=== PATIENT | male | born 1980 | race Caucasian/White ===

== ENCOUNTER 2017-11-13 08:20 | Day surgery (SDC) | payer OTHER ==
[2017-11-02 10:50] VITALS: Ht 185.4 cm; Wt 177.3 kg
[~2017-11-13] VITALS: Ht 185.4 cm; Wt 177.3 kg
[~2017-11-13 08:20] MED LIST: AMOX875T PO; CEFAZOLIN 3000MG IV PUSH 22.5 ML IV SCH; FURO-85 PO; GLIM2TAB2 PO; LACTATED RINGER'S 1000ML 1,000 ML IV SCH; LEVO200T6 PO; LEVO25TA5 PO; LISI20TA3 PO; METF-384 PO; SULF800T23 PO
[2017-11-13] MEDS ORDERED: FENTANYL CITRATE INJ 50 MCG/1 ML 2 ML VIAL ONE ×2 (08:46→10:08)
[2017-11-13] MEDS ORDERED: MIDAZOLAM HCL 1 MG/ML 2ML VIAL ONE ×2 (08:47)
[2017-11-13 08:48] VITALS: BP 156/79; PULSE 94; TEMP 37.2; O2SAT 95
--- NOTE | 2017-11-13 09:16 | History & Physical Bridge Note ---
H&P Re-Evaluation Bridge Note: I have examined the patient, reviewed the History & Physical and in the interval since the performance of the History & Physical I have noted the following changes of clinical significance: No changes noted
[2017-11-13] MEDS ORDERED: BUPIVACAINE 0.5 % 5 MG/1 ML MPF 30ML VIAL ONE ×2 (09:21→10:07)
[2017-11-13] MEDS ORDERED: LIDOCAINE HCL 1% 20 ML VIAL ONE ×2 (09:21→10:07)
[2017-11-13] MEDS ORDERED: ONDANSETRON INJ 2 MG/ML 2 ML VIAL IV PRN ×2 (09:30→10:45)
[2017-11-13] MEDS ORDERED: LABETALOL HCL IV 5 MG/ML 20ML IV PRN (09:30)
[2017-11-13] MEDS ORDERED: KETOROLAC TROMETHAMINE 30 MG/ML VIAL IV. PRN (09:30)
[2017-11-13] MEDS ORDERED: ATROPINE SULFATE 0.1 MG/ML 5ML SYR IV PRN (09:30)
[2017-11-13] MEDS ORDERED: FENTANYL CITRATE INJ 50 MCG/1 ML 2 ML VIAL IV PRN (09:30)
[2017-11-13] MEDS ORDERED: PROPOFOL IV EMULSION 10 MG/ML 20 ML VIAL ONE ×2 (09:51→10:19)
[2017-11-13] MEDS ORDERED: BACITRACIN OINT 15 GM TUBE ONE (10:27)
--- NOTE | 2017-11-13 10:33 | [facility] Post Operative Brief Note ---
Immediate Operative Summary Operative Date November 13, 2017. Pre-Operative Diagnosis Sebaceous Cyst on Back Post-Operative Diagnosis Same as preoperative Procedure(s) Performed Resection Cyst on Back Under Sedation and Local Surgeon Dr. Roby Salvador Pitting Machine Operator Surgeon(s) None per surgeon Estimated Blood Loss 20ml Findings Consistent with Post-Op Diagnosis Fluids (cc crystalloids) 800ML Specimens PERMANENT: A) Sebaceous Cyst CULTURE: 1) Sebaceous Cyst Fluid Anesthesia Type MAC Complication(s) none Disposition Accompanied Pt To Recover: yes Disposition: Recovery Room / PACU
[2017-11-13] MEDS ORDERED: SODIUM CHLORIDE 0.9% 1000ML 1,000 ML IV SCH (10:43)
[2017-11-13] MEDS ORDERED: MoRPHine SULFATE 4 MG/ML 1 ML CARP\\VIAL IV PRN (10:45)
[2017-11-13] MEDS ORDERED: OXYC-57 PO (10:45)
[2017-11-13] MEDS ORDERED: OXYCODONE/ACETAMINOPHEN 5-325 TAB PO PRN (10:45)
--- NOTE | 2017-11-13 10:48 | Discharge Instructions ---
Discharge Instructions Date of Service November 13, 2017. Visit Reason for Visit: Sebaceous Cyst -On Back Discharge Discharge Diagnosis / Problem: S/P resection a cyst on back Discharge Goals Goal(s): Decrease discomfort, Improve function Activity Recommendations Activity Limitations: per Instructions/Follow-up section Lifting Limitations: no more than 25 pounds Exercise/Sports Limitations: rest today May Resume Sexual Activity: when tolerated Shower/Bathe: may shower/bathe in 3 days Anesthesia . Post Anesthesia Instructions: If you have had General Anesthesia or IV Sedation: * Do not drive today. * Resume driving when surgeon permits. * Do not make important decisions or sign legal documents today. * Call surgeon for: 1. Temperature elevations greater than 101 degrees F. 2. Uncontrollable pain. 3. Excessive bleeding. 4. Persistent nausea and vomiting. 5. Medication intolerance (nausea, vomiting or rash). * For nausea and vomiting use only clear liquids such as: tea, soda, bouillon until nausea subsides, then gradually increase diet as tolerated. * If you have any concerns or questions, call your surgeon's office. If physician is unavailable and it is an emergency, call 911 or go to the nearest emergency room. . Instructions / Follow-Up Instructions / Follow-Up keep the dressing on for 4 days, he can take a shower on 11/18/2017, no driving while taking pain medicine, Follow up Dr. waddell in 3 weeks, Diet Recommendations Recommended Home Diet: resume previous diet Procedures Procedures Performed: Resection Cyst on Back Under Sedation and Local Pending Studies Studies pending at discharge: no Medical Emergencies . Who to Call and When: Medical Emergencies: If at any time you feel your situation is an emergency, please call 911 immediately. . Non-Emergent Contact Non-Emergency issues call your: Surgeon Call Non-Emergent contact if: you have a fever, temperature is above 100.5, your pain is not controlled, your pain is worsening, wound has increased drainage, wound has increased redness . . "Provider Documentation" section prepared by Roby Waddell. . [place] Drug Monitoring Program Search Results: no issues identified
[2017-11-13 11:10] VITALS: BP 142/93; PULSE 86; TEMP 37; O2SAT 95
[2017-11-13 11:40] VITALS: BP 138/67; PULSE 87; TEMP 36.8; O2SAT 95
--- NOTE | 2017-11-13 11:40 | Anesthesiology Progress Note ---
Anesthesia Post Op Note Date & Time November 13, 2017 at 11:40 Vital Signs Pain Intensity: 0 Vital Signs Past 12 Hours Date Time Temp Pulse Resp B/P (MAP) Pulse Ox O2 Delivery O2 Flow Rate FiO2 11/13/17 11:10 37.0 86 18 142/93 95 Room Air 11/13/17 11:00 36.5 83 16 137/87 95 11/13/17 10:50 84 16 157/90 96 11/13/17 10:40 36.5 83 16 159/59 96 11/13/17 08:48 37.2 94 20 156/79 (104) 95 Room Air Notes Mental Status: alert / awake / arousable, participated in evaluation Pt Amnestic to Procedure: Yes Nausea / Vomiting: adequately controlled Pain: adequately controlled Airway Patency, RR, SpO2: stable & adequate BP & HR: stable & adequate Hydration State: stable & adequate Anesthetic Complications: no major complications apparent
--- NOTE | 2017-11-13 15:02 | OPERATIVE REPORT ---
DATE OF OPERATION: 11/13/2017 PREOPERATIVE DIAGNOSIS: Cyst on the back. POSTOPERATIVE DIAGNOSIS: Cyst on the back. OPERATION: Resection of cyst on the back. SURGEON: Roby Salvador MD ANESTHESIA: Conscious sedation plus local. ESTIMATED BLOOD LOSS: About 20 mL. FINDING: A large cyst on the back. COMPLICATIONS: None. INDICATION FOR THE PROCEDURE: This is a 36-year-old gentleman who presents with an infected cyst on the back. The patient already has a drainage of the infected abscess and now the infection has gone. The patient will require resection of the cyst on the back. I did talk to the patient about the benefits, risks, and alternatives to the procedure. I indicated the risks that may include but not limited such as bleeding, infection, recurrence, may need more procedure. The patient understands. He signed informed consent and I answered all questions. DETAILS OF PROCEDURE: We brought the patient to the OR, put the patient on the right-sided decubitus position. The patient received SCDs on bilateral legs to prevent DVT. Also, the patient received conscious sedation by the anesthesiology. The patient's back was prepped and draped in routine sterile fashion. Also the patient received 2 g of Ancef IV for prophylactic antibiotic. After timeout, I injected 1% lidocaine mixed with 0.5% Marcaine around the cyst on the back. The cyst sized about 3 x 4 cm. Then I used a 15 blade and completely removed the cyst deep through subcutaneous layer. Hemostasis obtained. There was some fluid which came out. We did send a wound culture. Hemostasis obtained. Then I used 2-0 Vicryl to close the subcutaneous layer interrupted and closed skin by using 2-0 nylon interrupted layer. I put the dressing on. The patient tolerated the procedure well. After the procedure, the patient was transferred to the recovery room in stable condition. The specimen was sent to pathology. I attest to the content of the Intraoperative Record and any orders documented therein. Any exceptions are noted below. [employer]
[2017-11-14] MEDS ORDERED: CEFAZOLIN SOD 3000MG/22.5 ML IV PUSH IV ONE (06:00)
== END 2017-11-13 11:55 | disposition home or self-care (01) ==
LOC: C.ACU 08:20
PROVIDERS: ATTEND Surgery
DX: L72.0 Epidermal cyst (principal); E11.9 Type 2 diabetes mellitus without complications; I10 Essential (primary) hypertension

== ENCOUNTER 2025-05-18 12:26 | Observation (INO) ==
--- NOTE | 2025-05-18 13:25 | Emergency Department Note ---
ED Provider Note History of Present Illness Chief Complaint: Cardiac Assessment Stated Complaint: CHEST DISCOMFORT Time Seen by Provider: 05/18/25 12:45 44-year-old male who presents to the emergency department with his (who also provides history) for evaluation of lower substernal chest discomfort that has been intermittent for the past few weeks. He reports that the pain is not reproducible. Sometimes he can go up and down steps without discomfort, other times he may have discomfort when resting. Patient reports he has also had intermittent shortness of breath as well. He denies any recent upper respiratory infections. The patient reports that he ran out of his blood pressure and diabetes medications. He does continue with his metformin. He was trying to get into his PCP to have his medications refilled. He currently denies any pain radiating into the abdomen, back or neck. He does report strong family history of coronary artery disease with his father dying in his 50s from a heart attack. Patient does have high cholesterol as well. Patient also reports lightheadedness and overall not feeling well that he suspects is probably from not taking his medications. He currently denies any pain. Home Medications Medication Instructions Recorded Confirmed Type levothyroxine 200 mcg tablet 200 mcg PO DAILY 05/18/25 05/18/25 History levothyroxine 25 mcg tablet 25 mcg PO DAILY 05/18/25 05/18/25 History lisinopril 20 mg tablet 20 mg PO QAM 05/18/25 05/18/25 History metformin 1,000 mg tablet 1,000 mg PO AMHS 05/18/25 05/18/25 History semaglutide 1 mg/dose (4 mg/3 mL) 1 mg subcut WK 05/18/25 05/18/25 History subcutaneous pen injector (Ozempic) Allergies Allergy/AdvReac Type Severity Reaction Status Date / Time No Known Allergies Allergy Unverified 11/13/17 08:36 Past Med/Surg History Problem List (Updated 05/18/25 @ 17:39 by Santo Hanley) Noncompliance with medication regimen (Acute) Uncontrolled hypertension (Acute) Poorly controlled diabetes mellitus (Acute) Chest pain (Acute) Chest discomfort Medical History (Updated 05/18/25 @ 17:39 by Santo Hanley) Hypothyroidism (acquired) Hypertension Hyperlipidemia Diabetes Family History (Updated 05/18/25 @ 14:19 by Santo Hanley) Other Coronary heart disease Social History Smoking Status: Never smoker Hx Alcohol Use: Yes Alcohol type: beer Hx Substance Use: No Preferred Language: Ethiopian Communication Ability: Effective Ip Litigation Paralegal Required: No Beliefs That Will Affect Care: None marital status: Current Living Situation: Spouse Current Living Situation Comment: Owns home current occupational status: employed Feels Safe at Home: Yes Physical Exam Vital Signs Vital Signs - 24 hr 05/18/25 12:27 05/18/25 12:28 05/18/25 13:03 Temperature 36.6 C Temperature Source Temporal Artery Scan Pulse Rate 93 H 91 H Pulse Rate from SpO2 Sensor 91 H Respiratory Rate 18 18 Respiratory Effort / Characteristics Non-Labored Spontaneous Respiratory Depth Normal Respiratory Pattern Regular Blood Pressure 185/91 H 192/108 H Blood Pressure Mean 122 136 Pulse Oximetry 96 97 Oxygen Delivery Method Room Air Room Air Sepsis Recent Fever Within 48 Hours No Sepsis New/Unexplained Change in Mental Status N/A Sepsis Action Taken by Nursing No Action Required 05/18/25 13:05 05/18/25 13:30 05/18/25 14:00 Temperature Temperature Source Pulse Rate 91 H 93 H 93 H Pulse Rate from SpO2 Sensor 94 H 93 H Respiratory Rate 25 H 20 Respiratory Effort / Characteristics Respiratory Depth Respiratory Pattern Blood Pressure 183/108 H 178/105 H Blood Pressure Mean 133 129 Pulse Oximetry 94 93 Oxygen Delivery Method Sepsis Recent Fever Within 48 Hours Sepsis New/Unexplained Change in Mental Status Sepsis Action Taken by Nursing 05/18/25 14:30 Temperature Temperature Source Pulse Rate 86 Pulse Rate from SpO2 Sensor 86 Respiratory Rate 24 Respiratory Effort / Characteristics Respiratory Depth Respiratory Pattern Blood Pressure 184/114 H Blood Pressure Mean 137 Pulse Oximetry 96 Oxygen Delivery Method Sepsis Recent Fever Within 48 Hours Sepsis New/Unexplained Change in Mental Status Sepsis Action Taken by Nursing CONSTITUTIONAL: Morbidly obese male who does not appear in any acute distress. Alert and oriented x 3. HEENT: No scleral icterus or conjunctival injection. NECK: No JVD or carotid bruits appreciated. RESPIRATORY: Clear to auscultation bilaterally with no wheezing, crackles, rhonchi or stridor. CARDIOVASCULAR: Regular rate and rhythm with no murmurs, rubs or gallops. GASTROINTESTINAL: Bowel sounds present in all quadrants. Abdomen is soft and nontender to palpation. MUSCULOSKELETAL: Full range of motion of all joints without discomfort. INTEGUMENTARY: No rash or other significant dermatologic conditions noted. HEMATOLOGIC: No ecchymosis or petechiae. PSYCHIATRIC: Positive affect. NEUROLOGIC: Cranial nerves II-XII grossly intact. No focal neurologic deficits noted. Course Course Patient history and physical exam were performed. Nursing notes were reviewed. Vital signs are reviewed from triage, showing a blood pressure of 185/91. On my examination, however he was nearly 220 systolic. Patient otherwise did not appear in any acute distress. IV access was established, and labs were ordered and drawn. The patient was administered IV hydralazine. An ECG was performed, showing a normal sinus rhythm with inverted T waves on septal leads. No ST elevations or Q waves noted. The patient was placed on spring assembler supervisor while in the emergency department. Portable chest x-ray did not show evidence for any pulmonary edema, consolidations, pneumothorax or cardiomegaly. Review of labs shows relatively normal CBC and coag studies. D-dimer was also normal. Patient does have a mildly elevated troponin of 34.6. Patient is mildly hyponatremic with a glucose of 279. Lipase is also normal. Findings were discussed with the patient. I did recommend admission for further serial cardiac enzymes and ECG studies, as well as cardiology consultation. The patient was in agreement. The case was discussed with our manager financial planning, as well as Dr. Lugo ([facility] hospitalist), who has agreed to evaluate the patient. Please see their dictation for further treatment and final disposition. I did go back and discussed along the patient has not been taking his usual medications, and reports at least 4 months. This information was relayed back to the hospitalist team. Administered Medications Discontinued Medications Hydralazine HCl (Hydralazine Hcl 20 Mg/Ml Vial) 10 mg IV NOW STA Stop: 05/18/25 13:03 Last Admin: 05/18/25 13:31 Dose: 10 mg Documented By: PARAG Sodium Chloride (Nss) 500 mls @ 999 mls/hr IV .Q31M ONE Stop: 05/18/25 13:32 Last Infusion: 05/18/25 16:49 Dose: Infused Documented By: angela Admin: 05/18/25 13:32 Dose: 999 mls/hr Documented By: PARAG Medical Decision Making Medical Records Attestation: I reviewed the patient's medical records. Home Medications was personally reviewed by me Laboratory Data Attestation: I reviewed the patient's lab results. 05/18/25 13:13 05/18/25 13:13 Lab Results 05/18/25 Range/Units 13:13 WBC 9.81 (4.8-10.8) K/ul RBC 5.15 (4.70-6.10) M/uL Hgb 16.1 (14.0-18.0) g/dL Hct 45.8 (42.0-52.0) % MCV 88.9 (80.0-100.0) fL MCH 31.3 (25.0-34.0) pg MCHC 35.2 (32.0-36.0) g/dL RDW Std Deviation 38.7 (36.4-46.3) fL RDW Coeff of Regi 11.9 (11.5-14.5) % Plt Count 296 (130-400) K/uL MPV 9.1 L (9.4-12.4) fL Immature Gran % (Auto) 0.3 % Neut % (Auto) 67.8 % Lymph % (Auto) 25.1 % Newton % (Auto) 5.3 % Eos % (Auto) 0.9 % Baso % (Auto) 0.6 % Neut # (Auto) 6.65 H (1.40-6.50) K/uL Lymph # (Auto) 2.46 (1.20-3.40) K/uL Newton # (Auto) 0.52 (0.11-0.59) K/uL Eos # (Auto) 0.09 (0.00-0.50) K/uL Baso # (Auto) 0.06 (0.00-0.20) K/uL Immature Gran # (Auto) 0.03 (0.01-0.20) K/uL PT 9.9 (9.0-12.0) Seconds INR 0.9 (0.9-1.1) APTT 27 (21-31) Seconds PTT Ratio 1.0 D-Dimer 270 (0-500) ug/L FEU Sodium 134 L (136-145) mmol/L Potassium 4.1 (3.5-5.1) mmol/L Chloride 97 L (98-107) mmol/L Carbon Dioxide 30 (21-32) mmol/L Anion Gap 7 (3-11) BUN 16 (6-23) mg/dl Creatinine 0.77 (0.6-1.4) mg/dl Est Cr Clr Drug Dosing 183.4 ml/min eGFR 113.22 BUN/Creatinine Ratio 20.8 H (10-20) Glucose 279 H (70-99(Fasting)) mg/dl Calcium 9.4 (8.6-10.3) mg/dl Total Bilirubin 0.5 (0.2-1.0) mg/dl AST 24 (13-39) U/L ALT 33 (7-52) U/L Alkaline Phosphatase 100 (34-104) U/L Troponin I High Sens 34.6 H (0-20) pg/ml B-Natriuretic Peptide 29 (0-100) pg/ml Total Protein 7.6 (6.0-8.3) gm/dl Albumin 4.3 (3.4-5.0) gm/dl Globulin 3.3 (2.5-4.0) gm/dl Albumin/Globulin Ratio 1.3 (0.9-2) Lipase 26 (11-82) U/L Imaging Data Attestation: I personally reviewed and interpreted this imaging study as follows: My Impression: My interpretation of a portable chest x-ray does not show evidence for any pulmonary edema, pneumonia, pneumothorax or cardiomegaly. Radiologist report was also reviewed with concurrence. Radiologist's Impression: Chest X-Ray 05/18/25 13:02 SINGLE VIEW CHEST CLINICAL HISTORY: Chest pain FINDINGS: An AP, portable, upright chest radiograph is obtained. No prior studies are available for comparison at the time of dictation. The cardiomediastinal silhouette is unremarkable. The lungs and pleural spaces are clear. No pneumothorax is seen. The bony thorax is grossly intact. IMPRESSION: No acute cardiopulmonary abnormality is identified. ACT 112: Negative or not required by law. Electronically signed by: Delio Castorena M.D. 05/18/2025 2:20 PM ECG Data Attestation: I personally reviewed and interpreted this ECG as follows: Indication: + chest pain and + SOB/dyspnea Rate (beats per minute): 98 Rhythm: + normal sinus ECG Intervals/blocks: + Incomplete right bundle branch block and + Normal QRS ECG Todd: + Normal ECG ST segments: + Normal ST segments and + T-wave inversions (Anterior) Comparison ECG Date: no prior available MDM Narrative Cardiac monitoring: An order was placed for continuous cardiac monitoring. The monitor shows a rate of 98 bpm with a normal sinus rhythm. subassembler history was reviewed throughout the evaluation, and no dysrhythmias were noted. See ED Course section for further details of today's visit. The patient presents with complaint of intermittent chest discomfort that does not always include an exertional factor. Today's workup does show a mildly elevated troponin. The patient does have significant risk history with hyperlipidemia, diabetes, hypercholesterolemia and an hypothyroidism. He also has a strong family history of coronary artery disease. Patient of a heart score of 5, with a risk of major acute cardiac event of 12 to 16.6%. Further admission and workup is warranted per guidelines. Patient also has medication noncompliance with a glucose of 279. At this point, I do feel that further admission for serial ECG and cardiac enzymes are warranted, as well as cardiology consultation. Patient was in agreement with this plan as well. Impression Chest pain, Poorly controlled diabetes mellitus, Uncontrolled hypertension, Noncompliance with medication regimen Discharge Plan Visit Data Chief Complaint: Cardiac Assessment Stated Complaint: CHEST DISCOMFORT ED Provider: Eran Smith ED Midlevel Provider: Santo Hanley Discharge Problem: Chest pain, Poorly controlled diabetes mellitus, Uncontrolled hypertension, Noncompliance with medication regimen Patient Disposition: Admitted As Inpatient Condition: Fair Discharge Instructions Interventions: ED Discharge Assessment Last Done: 05/18/25 15:41 ED DC CONDITION Conditon at Discharge Condition at Discharge: Fair Discharge Problem: Chest pain Qualifiers: Chest pain type: precordial pain Qualified Code(s): R07.2 - Precordial pain
[2025-05-18 13:26] LABS: Hematocrit (blood only) 45.8 % (42.0-52.0); Hemoglobin 16.1 g/dL (14.0-18.0); Immature Granulocytes # (auto) 0.03 K/uL (0.01-0.20); Immature Granulocytes % (auto) 0.3 %; Mean Corpuscular Hemoglobin 31.3 pg (25.0-34.0); Mean Corpuscular Volume 88.9 fL (80.0-100.0); Platelet Count 296 K/uL (130-400); RDW Standard Deviation 38.7 fL (36.4-46.3); Red Blood Count 5.15 M/uL (4.70-6.10); White Blood Count 9.81 K/ul (4.8-10.8)
[2025-05-18] MEDS: SODIUM CHLORIDE 0.9% 500 ML IV ONE (13:32)
[2025-05-18 13:43] LABS: Alanine Aminotransferase 33.0 U/L (7-52); Albumin Globulin Ratio 1.3 (0.9-2); Albumin Level 4.3 gm/dl (3.4-5.0); Alkaline Phosphatase 100.0 U/L (34-104); Anion Gap 7.0 (3-11); Bilirubin,Total 0.5 mg/dl (0.2-1.0); Blood Urea Nitrogen 16.0 mg/dl (6-23); Calcium 9.4 mg/dl (8.6-10.3); Carbon Dioxide 30.0 mmol/L (21-32); Chloride 97.0 mmol/L (98-107); Creatinine Clr Calc Pharmacy 183.4 ml/min; Globulin 3.3 gm/dl (2.5-4.0); Glucose 279.0 mg/dl (70-99(Fasting)); Lipase 26.0 U/L (11-82); Potassium 4.1 mmol/L (3.5-5.1); Sodium 134.0 mmol/L (136-145); Total Protein 7.6 gm/dl (6.0-8.3)
[2025-05-18 13:55] LABS: INR 0.9 (0.9-1.1); Partial Thromboplastin Time 27 Seconds (21-31); Prothrombin Time 9.9 Seconds (9.0-12.0)
--- NOTE | 2025-05-18 14:21 | XRay Report ---
SINGLE VIEW CHEST CLINICAL HISTORY: Chest pain FINDINGS: An AP, portable, upright chest radiograph is obtained. No prior studies are available for c omparison at the time of dictation. The cardiomediastinal silhouette is unremarkable. The lungs and p leural spaces are clear. No pneumothorax is seen. The bony thorax is grossly intact. IMPRESSION: No acute cardiopulmonary abnormality is identified. ACT 112: Negative or not required by law. Electronically signed by: Delio Castorena M.D. 05/18/2025 2:20 PM
[2025-05-18] MEDS ORDERED: ACETAMINOPHEN 325 MG TAB PO PRN (14:54)
[2025-05-18] MEDS ORDERED: NITROGLYCERIN SL 0.4 MG/TAB TAB SL PRN (14:54)
[2025-05-18] MEDS ORDERED: MAGNESIUM HYDROXIDE SUSP 30 ML UDC PO PRN (14:54)
[2025-05-18] MEDS ORDERED: ALUMINUM/MAGNESIUM SUSP 30 ML UDC PO PRN (14:54)
[2025-05-18] MEDS ORDERED: LORazepam Inj 1 MG in SYRINGE 0.5 ML IV PRN (14:55)
[2025-05-18] MEDS ORDERED: LORazepam Inj 2 MG in SYRINGE 1 ML IV PRN (14:55)
[2025-05-18] MEDS ORDERED: DEXTROSE 50% 50 ML SYRINGE IV PRN (15:00)
[2025-05-18] MEDS ORDERED: PHARMACY GLYCEMIC MGMT CONSULT PRN (15:00)
[2025-05-18] MEDS ORDERED: GLUCOSE 10 TAB/TUBE PO PRN (15:00)
[2025-05-18] MEDS ORDERED: CARBOHYDRATES FOR HYPOGLYCEMIA PO PRN (15:00)
[2025-05-18] MEDS ORDERED: GLUCOSE 40% GEL 15 GM TUBE PO PRN (15:00)
[2025-05-18] MEDS ORDERED: GLUCAGON FOR INJ 1 MG VIAL SQ PRN (15:00)
--- NOTE | 2025-05-18 15:06 | History & Physical Report ---
Date of Service May 18, 2025 Assessment & Plan (1) Chest discomfort: Plan Chest discomfort, rule out ACS Hypertensive urgency Medication Compliance issue Patient reports that due to being busy at work, he has not been able to follow- up with his PCP and has not filled/taken his home medications since last 4 months. Patient educated regarding importance of being compliant with medications and its role in preventing future complications from chronic diseases. Patient reported chest discomfort with activity, has significant family history of heart disease. See HPI. Admitting blood pressure of 185/91 at presentation, Troponin of 34.6, EKG with possible anteroseptal infarct. Patient is chest pain-free at rest and during bedside exam. Trend troponin, get echo, cardiology consult, telemetry monitoring. Resume home lisinopril, as needed blood pressure medication added. His blood pressure medication needs to be uptitrated as appropriate. LDL and A1c in AM. If troponin uptrending or patient with chest pain at rest or evolution of ekg changes, consider heparin drip. N.p.o. midnight. Alcohol abuse: Drinks 10-15 beers a day, denies any history of withdrawal reaction or seizures. Will put him on the PEPITO S scale. T2DM: Patient has not been taking his metformin since last 4 months, likely uncontrolled. Glycemic pharmacy consult, sliding scale insulin, religious educator consult. A1c w/ am lab. Mild hyponatremia: Likely in the setting of high blood glucose, labs in AM. Obese Class III, concern for sleep apnea: pt reports waking up in night w/ anxiety, recommend OP sleep study, will do nocturnal pulse ox here. Counselled on weight loss importance and strategies. Acquired hypothyroidism: He was not taking his thyroid medication for the last 4 months.Will add TSH to his a.m. lab, continue home levothyroxine dose, will need repeat thyroid function test in about 6 weeks time. DVT prophylaxis: Heparin subcu Full code History of Present Illness Chief Complaint: Chest discomfort Primary Care Provider: Vince Jimenez MD 44-year-old male with PMH of T2DM, acquired hypothyroidism, anxiety, HTN presents to the ED with complaint of chest discomfort. Patient reports that he has not been able to follow-up with PCP and has not been able to refill his outpatient medication for last 4 months. Patient reports that he has not taken his thyroid/blood pressure/diabetes medications since about 4 months' time. Patient reports that he has been feeling chest discomfort with activity for about 2 weeks, intermittent in nature, gets relief with rest, occasionally associated with some shortness of breath. Patient also reports that he has been waking up 1-2 times a night with anxiety but denies air hunger. Patient denies fever/chills/sore throat/cough/nausea/vomiting/diarrhea/acute changes in bowel or bladder or appetite habits. Patient reports his dad and uncle had MD in their 50s, his both grand dads that had MD in their 70s, his grandmother had MD in her 60s. Patient denies smoking, reports drinking 10-15 beers a day, denies recreational drug use. Last alcohol intake was last week. Medications reviewed w/ the patient and his at bedside. Plan of care discussed with the patient and his at bedside in detail, they voiced understanding. Full code Allergies Allergy/AdvReac Type Severity Reaction Status Date / Time No Known Allergies Allergy Unverified 11/13/17 08:36 Home Medications Medication Instructions Recorded Confirmed Type levothyroxine 200 mcg tablet 200 mcg PO DAILY 05/18/25 05/18/25 History levothyroxine 25 mcg tablet 25 mcg PO DAILY 05/18/25 05/18/25 History lisinopril 20 mg tablet 20 mg PO QAM 05/18/25 05/18/25 History metformin 1,000 mg tablet 1,000 mg PO AMHS 05/18/25 05/18/25 History semaglutide 1 mg/dose (4 mg/3 mL) 1 mg subcut WK 05/18/25 05/18/25 History subcutaneous pen injector (Ozempic) Past Med/Surg History Problem List (Updated 05/18/25 @ 15:23 by Austin Lugo MD) Chest discomfort Medical History Hypertension Hyperlipidemia Diabetes Family History (Updated 05/18/25 @ 14:19 by Santo Hanley) Other Coronary heart disease Social History Smoking Status: Never smoker Preferred Language: Vietnamese marital status: Current Living Situation: Spouse current occupational status: employed Feels Safe at Home: Yes Review of Systems Review of Systems: Negative otherwise mentioned in HPI. Physical Exam Physical Exam: GENERAL: Alert and oriented x3. NAD, on RA. Obese class III. HEENT: No pallor, no icterus. Pupils equal, round and reactive to light. Oral mucosa moist. NECK: No JVD, no neck masses. HEART: S1 and S2 heard. Regular rate and rhythm. No murmur, no gallop. RESPIRATORY SYSTEM: Normal AP diameter. No accessory muscle use. No wheezing, no crackles. ABDOMEN: Soft, bowel sounds present, nontender, no distention. CENTRAL NERVOUS SYSTEM: No facial droop. Speech is clear. Obeys simple commands. Moves extremities. EXTREMITIES: No edema, no erythema seen. Results & Data Results & Data Vital Signs (Past 12 Hours) Vital Signs Temp Pulse Resp BP Pulse Ox O2 Del Method 05/18/25 14:30 86 24 184/114 H 96 05/18/25 14:00 93 H 20 178/105 H 93 05/18/25 13:30 93 H 25 H 183/108 H 94 05/18/25 13:05 91 H 05/18/25 13:03 91 H 18 192/108 H 97 05/18/25 12:28 36.6 C 93 H 18 185/91 H 96 Room Air 05/18/25 12:27 Room Air
[2025-05-18] MEDS: INSULIN ASPART PER UNIT CHARGE SC SCH (17:45)
[2025-05-18] MEDS: LABETALOL HCL IV 5 MG/ML 20ML IV PRN (19:07)
[2025-05-18] MEDS: HEPARIN SOD 5,000 UNIT/0.5 ML VIAL SQ SCH (20:10)
[2025-05-18] MEDS ORDERED: LANTUS PER UNIT CHARGE SQ SCH (21:00)
--- NOTE | 2025-05-18 21:38 | Electrocardiogram Report ---
Test Reason : Blood Pressure : */* mmHG Vent. Rate : 98 BPM Atrial Rate : 98 BPM P-R Int : 162 ms QRS Dur : 102 ms QT Int : 342 ms P-R-T Axes : 24 40 48 degrees QTcB Int : 436 ms Normal sinus rhythm Incomplete right bundle branch block Possible Anteroseptal infarct , age undetermined Abnormal ECG No previous ECGs available Confirmed by Roberto Arzate ([id number]) on 05/18/2025 9:38:16 PM Referred By: Confirmed By: Roberto Arzate
[2025-05-19 03:27] LABS: Hematocrit (blood only) 42.5 % (42.0-52.0); Hemoglobin 14.6 g/dL (14.0-18.0); Mean Corpuscular Hemoglobin 30.8 pg (25.0-34.0); Mean Corpuscular Volume 89.7 fL (80.0-100.0); Platelet Count 264 K/uL (130-400); RDW Standard Deviation 39.5 fL (36.4-46.3); Red Blood Count 4.74 M/uL (4.70-6.10); White Blood Count 8.80 K/ul (4.8-10.8)
[2025-05-19 03:42] LABS: Anion Gap 7.0 (3-11); Blood Urea Nitrogen 15.0 mg/dl (6-23); Calcium 8.7 mg/dl (8.6-10.3); Carbon Dioxide 30.0 mmol/L (21-32); Chloride 100.0 mmol/L (98-107); Cholesterol 193.0 mg/dl (0-200); Creatinine Clr Calc Pharmacy 176.6 ml/min; Glucose 151.0 mg/dl (70-99(Fasting)); HDL Cholesterol 39.0 mg/dl; Magnesium 1.8 mg/dl (1.7-2.4); Potassium 3.8 mmol/L (3.5-5.1); Sodium 137.0 mmol/L (136-145); Triglycerides 299.0 mg/dl (0-150)
[2025-05-19 03:58] LABS: Thyroid Stimulating Hormone 24.017 uIu/ml (0.300-4.500)
[2025-05-19 04:32] LABS: T4 Free Thyroxine 0.74 ng/dl (0.61-1.60)
[2025-05-19] MEDS: LEVOTHYROXINE SODIUM 25 MCG TABLET PO SCH (06:27)
[2025-05-19] MEDS: LEVOTHYROXINE SODIUM 200 MCG TABLET PO SCH (06:27)
[2025-05-19 07:03] VITALS: RESP 18
[2025-05-19] MEDS: INSULIN ASPART PER UNIT CHARGE SC SCH ×2 (07:30→12:09)
--- NOTE | 2025-05-19 08:37 | Cardiology Consultation ---
Date of Consultation May 19, 2025 Assessment & Plan (1) Chest discomfort: (2) Uncontrolled hypertension: (3) Noncompliance with medication regimen: (4) Hypothyroidism (acquired): Plan Assessment: 44 year old male with history of HTN, DM, hypothyroidism admitted for hypertensive urgency in the setting of medication non-compliance. Troponin with minimal elevation, EKG with no acute ischemic changes. Cardiology consulted for further evaluation/recommendation. Plan: 1. chest discomfort 2. Uncontrolled HTN 3. Medication non-compliance 4. Hypothyroidism -patient admitted with 2 weeks of intermittent chest discomfort described as an "odd sensation" typically with exertion. also reports mild dyspnea on exertion. -EKG with incomplete Right BBB, but no acute ST-T wave changes. -Blood pressures markedly elevated on admission 190's/110--> now trending down with medication. Most recent 159/87 prior to AM medications. -TSH also severely abnormal. -patient does admit that he's been out of his medication for approx 4 months due to missed appointments and no refills. He is agreeable to restarting all medications. -discussed chest discomfort associated with hypertensive urgency. -Also discussed cardiac manifestations associated with a severely underactive thyroid. -Echocardiogram shows normal LVEF, no wall motion abnormalities and no significant valvular dysfunction. -continue with treatment of HTN with Lisinopril 20mg Daily. -Will need aggressive management/close monitoring of restarting thyroid medications. -Recommend that when patient is appropriate for discharge that he should establish care OP with cardiology and undergo stress testing for complete evaluation. this can not be done until blood pressures are controlled and Thyroid levels are corrected as it can increase likelihood of a dysrhythmia as well as other cardiac manifestations. Case has been discussed with Dr. Funk. Further recommendations regarding plan of care as per his assessment. I spent a total of 50 minutes on the date of service in preparation, delivery, documentation of the care provided to the patient excluding any time spent in the performance of separately billed services. MANUEL Garcia [facility] Card[facility] Supervising Physician Co-Signing Physician Notes Patient seen and examined. Past medical history, surgical history, social history and family history have been reviewed. The medical record and all the above studies have been reviewed. Case DW LORENA including management. ECHO 05/18/15 Interpretation Summary Left ventricular systolic function is normal. Left Ventricular Ejection Fraction = 55-60%. Diastolic dysfunction, Grade II (pseudonormalization pattern). The left atrium is mildly dilated. Mild pulmonic valvular regurgitation. There is mild mitral regurgitation. There is mild tricuspid regurgitation. Abnormal Troponin - likely due to demand ischemia and not indicative of Type I IA HTN - accelerated Chest Pain - atypical - likely due to accelerated HTN, Hypothyroidism Noncompliance Morbid Obesity optimization of thyroid status DM optimization adjust anti-HTN meds keeping systolic BP between 100-140 mmHg Increased Norvasc cont lisinopril correct and f/u electrolytes f/u renal function avoid hypovolemia keep patient euvolemic DVT prophylaxis salt restriction counseling dietary counseling stress test as OP after thyroid status has normalized History of Present Illness Reason for Consultation: Chest pain Requesting Physician: Gema pandya Attending Physician: Arjun Crum MD History of Present Illness HPI: Patient is a 44 year old male with PMHx significant for HTN, DM type II, hypothyroidism, anxiety and ETOH use that presented to the ER yesterday with acute complaints of chest pain. Reports that the discomfort started approximately 2 weeks ago, worse with exertion, relieved with rest. Describes it as purely a discomfort. Also endorses dyspnea on exertion. Patient reported that he has not followed up with his PCP in quite some time and has been out of his prescribed medications for at least 4 months. Patient endorses ETOH use, approx 10-15 beers per day, but reports last intake was one week ago. Initial EKG on admission SR with incomplete Right BBB, possible anteroseptal infarct. Rate 98bpm. QTC 436ms, Repeat EKG today shows NSR with incomplete Right BBB Rate 76bpm. HST 34.6/36.2/31.6/27.9 Triglycerides 299 TSH 24.017 Chest xray negative Echocardiogram pending Review of telemetry shows Sinus Rhythm Rates 70-90's. No ectopy or arrhythmia. No acute events overnight. Upon seeing patient is examination he is resting comfortably sitting on the edge of his bed. Reports feeling significantly better with a down trend in his blood pressure. Denies chest pain, pressure, palpitations, shortness of breath, PND, pre-syncope, syncope or edema. 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 Patient does not have a formal emergency room clinician outpatient as he has not needed one in the past. Allergies Allergy/AdvReac Type Severity Reaction Status Date / Time No Known Allergies Allergy Unverified 11/13/17 08:36 Home Medications Medication Instructions Recorded Confirmed Type semaglutide 1 mg/dose (4 mg/3 mL) 1 mg subcut WK 05/18/25 05/18/25 History subcutaneous pen injector (Ozempic) amlodipine 2.5 mg tablet 2.5 mg PO QAM #30 tabs 05/19/25 Rx blood sugar diagnostic (True #100 ea 05/19/25 Rx Metrix Glucose Test Strip) blood-glucose meter (True Metrix #1 ea 05/19/25 Rx Glucose Meter) lancets 30 gauge (TRUEplus Lancets) #100 ea 05/19/25 Rx levothyroxine 200 mcg tablet 200 mcg PO DAILY #30 tabs 05/19/25 Rx levothyroxine 25 mcg tablet 25 mcg PO DAILY #30 tabs 05/19/25 Rx lisinopril 20 mg tablet 20 mg PO QAM #30 tabs 05/19/25 Rx metformin 1,000 mg tablet 1,000 mg PO AMHS #60 tabs 05/19/25 Rx Patient History Medical History (Updated 05/18/25 @ 17:39 by Santo Hanley) Hypothyroidism (acquired) Hypertension Hyperlipidemia Diabetes Family History (Updated 05/18/25 @ 14:19 by Santo Hanley) Other Coronary heart disease Social History Smoking Status: Never smoker Hx Alcohol Use: Yes Alcohol type: beer Hx Substance Use: No Preferred Language: Japanese Communication Ability: Effective Reed Man Required: No Beliefs That Will Affect Care: None marital status: Current Living Situation: Spouse Current Living Situation Comment: Owns home current occupational status: employed Feels Safe at Home: Yes Review of Systems Review of Systems: All systems reviewed & are unremarkable except as noted in HPI & below Physical Exam Constitutional: well developed and + overweight Neck: normal visual inspection and trachea midline Respiratory: normal respiratory effort, lungs clear to auscultation Cardiovascular: Rate/Rhythm: regular rate and regular rhythm Heart Sounds: normal S1 and normal S2; no murmur Skin: no rashes, warm and dry Psychiatric: A+Ox3, euthymic affect Results & Data Vital Signs (Past 12 Hours) Vital Signs Temp Pulse Pulse Pulse Resp BP Pulse Ox 11/17/25 07:03 36.7 C 77 18 155/70 H 97 05/19/25 03:25 36.3 C L 73 16 124/75 96 05/18/25 23:26 36.7 C 76 16 144/70 H 96 05/18/25 22:03 83 05/18/25 21:53 76 Pulse Ox O2 Del Method O2 Del Method 05/19/25 07:03 Room Air 05/19/25 03:25 Room Air 05/18/25 23:26 Room Air 05/18/25 22:03 98 Room Air 05/18/25 21:53 Laboratory Results Cardiac Enzymes 05/18/25 05/18/25 05/18/25 Range/Units 13:13 14:55 19:53 AST 24 (13-39) U/L Troponin I High Sens 34.6 H 36.2 H 31.6 H (0-20) pg/ml B-Natriuretic Peptide 29 (0-100) pg/ml 05/19/25 Range/Units 03:00 AST (13-39) U/L Troponin I High Sens 27.9 H (0-20) pg/ml B-Natriuretic Peptide (0-100) pg/ml Coagulation 05/18/25 Range/Units 13:13 PT 9.9 (9.0-12.0) Seconds APTT 27 (21-31) Seconds B-Natriuretic Peptide 29 (0-100) pg/ml Lipids 05/19/25 Range/Units 03:00 Triglycerides 299 H (0-150) mg/dl Cholesterol 193 (0-200) mg/dl HDL Cholesterol 39 mg/dl Cholesterol/HDL Ratio 4.9 (0-5) CBC 05/18/25 05/19/25 Range/Units 13:13 03:00 WBC 9.81 8.80 (4.8-10.8) K/ul RBC 5.15 4.74 (4.70-6.10) M/uL Hgb 16.1 14.6 (14.0-18.0) g/dL Hct 45.8 42.5 (42.0-52.0) % Plt Count 296 264 (130-400) K/uL Neut # (Auto) 6.65 H (1.40-6.50) K/uL Lymph # (Auto) 2.46 (1.20-3.40) K/uL [place] # (Auto) 0.52 (0.11-0.59) K/uL Eos # (Auto) 0.09 (0.00-0.50) K/uL Baso # (Auto) 0.06 (0.00-0.20) K/uL Comprehensive Metabolic Panel 05/18/25 05/19/25 Range/Units 13:13 03:00 Sodium 134 L 137 (136-145) mmol/L Potassium 4.1 3.8 (3.5-5.1) mmol/L Chloride 97 L 100 (98-107) mmol/L Carbon Dioxide 30 30 (21-32) mmol/L BUN 16 15 (6-23) mg/dl Creatinine 0.77 0.80 (0.6-1.4) mg/dl Glucose 279 H 151 H (70-99(Fasting)) mg/dl Calcium 9.4 8.7 (8.6-10.3) mg/dl AST 24 (13-39) U/L ALT 33 (7-52) U/L Alkaline Phosphatase 100 (34-104) U/L Total Protein 7.6 (6.0-8.3) gm/dl Albumin 4.3 (3.4-5.0) gm/dl Intake and Output 05/18/25 05/19/25 05/19/25 22:59 06:59 14:59 Intake Total 1100 / 1200 100 / 1200 Balance 1100 / 1200 100 / 1200 Intake: IV 500 / 500 Sodium Chloride 0.9% 500 ml @ 500 / 500 999 mls/hr IV .Q31M ONE Rx#: [id number] Oral 600 / 700 100 / 700 Other: # Unmeasured Voids 1 Weight 151.9 kg 151.8 kg Weight Measurement Method [facility] Diagnostic Findings Echocardiogram 05/19/2025: LV systolic function is normal LVEF 55-60% Diastolic dysfunction, Grade II Mild pulmonic regurgitation mild Mitral regurgitation Mild Tricuspid regurgitation PG Care Time/CCT Total # of Minutes Spent Total Time Spent with Patient: Total time spent is greater than 50% in coordination of care (as documented) at patient's floor/unit and/or counseling patient: Coding Level of Care Code 08234 IN/OBS CONSULT LVL 5,80M Diagnoses Chest discomfort R07.89 Uncontrolled hypertension I10 Noncompliance with medication regimen Z91.148 Hypothyroidism (acquired) E03.9 Time Spent (min) 50
[2025-05-19 08:39] LABS: Hemoglobin A1C 7.8 % (4.5-5.6)
--- NOTE | 2025-05-19 09:14 | XCELERA ---
[id number]
[2025-05-19 10:37] VITALS: BP 159/87; PULSE 81; TEMP 98.4; O2SAT 99
--- NOTE | 2025-05-19 10:46 | Hospitalist Progress Note ---
Date of Service May 19, 2025 Assessment & Plan (1) Noncompliance with medication regimen: Plan: Counseled on medication compliance Patient understands and agrees to be compliant in the future (2) Uncontrolled hypertension: Plan: Hypertensive urgency Secondary to noncompliance Restarted lisinopril 20 mg daily IV labetalol as needed Monitor and adjust medications as needed (3) Chest pain: Plan: Chest pain likely due to above Troponin elevation likely demand ischemia secondary to hypertensive urgency --CXR:No acute cardiopulmonary abnormality is identified. --ECHO: Left ventricle systolic function is normal. EF 55 to 60%. Grade 2 diastolic dysfunction. Left atrium mildly dilated. Mild pulmonic valvular regurgitation. Mild mitral, tricuspid regurgitation. --EKG: NSR, Incomplete RBBB, QTc 436, nonspecific T wave changes Chest pain resolved Control blood pressure Cardiology on board Needs outpatient stress test (4) Poorly controlled diabetes mellitus: Plan: Morbid obesity BMI 46.7 Lifestyle modifications recommended Advised to get sleep study as outpatient Hypothyroidism Noncompliance TSH elevated, normal free T4 Resume levothyroxine Advised to get repeat thyroid function test as outpatient DM II HbA1c 7.8 Advised to resume metformin, Ozempic on discharge Insulin sliding scale while hospitalized Monitor glucose levels DVT Px: Heparin SQ CODE STATUS Full code Disposition Home Admission and Anticipated Discharge Date Admission Date: May 18, 2025 Subjective Patient is seen and examined at bedside Reports chest pain resolved Denies any dyspnea, nausea, vomiting, abdominal pain, dizziness Discussed with cardiology today Review of Systems Review of Systems: All systems reviewed & are unremarkable except as noted in Subjective Physical Exam 2 Physical Exam: Physical Exam: Vitals signs as noted above General Appearance:Obese, no apparent distress Head: normocephalic, Atraumatic Eyes: normal inspection, EOMI Neck: supple, Trachea midline Respiratory/Chest: Normal breath sounds, CTA, No accessory muscle use Cardiovascular: S1, S2, No murmur Abdomen/GI:Soft, Non tender, Bowel sounds present Extremities/Musculoskeletal:normal inspection, no edema Neurologic/Psych:AAOX3, grossly no focal neurological deficits Skin: normal color, warm Results & Data Results & Data Vital Signs (Past 12 Hours) Vital Signs Temp Pulse Resp BP Pulse Ox O2 Del Method 05/19/25 10:36 36.9 C 81 18 159/87 H 99 Room Air 05/19/25 07:03 36.7 C 77 18 155/70 H 97 Room Air 05/19/25 03:25 36.3 C L 73 16 124/75 96 Room Air 05/18/25 23:26 36.7 C 76 16 144/70 H 96 Room Air Laboratory Results Short CBC 05/18/25 05/19/25 Range/Units 13:13 03:00 WBC 9.81 8.80 (4.8-10.8) K/ul Hgb 16.1 14.6 (14.0-18.0) g/dL Hct 45.8 42.5 (42.0-52.0) % Plt Count 296 264 (130-400) K/uL BMP 05/18/25 05/19/25 13:13 03:00 Sodium 134 L 137 Potassium 4.1 3.8 Chloride 97 L 100 Carbon Dioxide 30 30 BUN 16 15 Creatinine 0.77 0.80 Glucose 279 H 151 H Calcium 9.4 8.7 Liver Function 05/18/25 Range/Units 13:13 Total Bilirubin 0.5 (0.2-1.0) mg/dl AST 24 (13-39) U/L ALT 33 (7-52) U/L Alkaline Phosphatase 100 (34-104) U/L Albumin 4.3 (3.4-5.0) gm/dl (3) Chest pain Chest pain type: precordial pain Qualified Code(s): R07.2 - Precordial pain
[2025-05-19] MEDS: LANTUS PER UNIT CHARGE SQ SCH (12:09)
--- NOTE | 2025-05-19 12:40 | Discharge Summary ---
Date of Service May 19, 2025 Admission HPI Per Admitting Provider 44-year-old male with PMH of T2DM, acquired hypothyroidism, anxiety, HTN presents to the ED with complaint of chest discomfort. Patient reports that he has not been able to follow-up with PCP and has not been able to refill his outpatient medication for last 4 months. Patient reports that he has not taken his thyroid/blood pressure/diabetes medications since about 4 months' time. Patient reports that he has been feeling chest discomfort with activity for about 2 weeks, intermittent in nature, gets relief with rest, occasionally associated with some shortness of breath. Patient also reports that he has been waking up 1-2 times a night with anxiety but denies air hunger. Patient denies fever/chills/sore throat/cough/nausea/vomiting/diarrhea/acute changes in bowel or bladder or appetite habits. Patient reports his dad and uncle had WI in their 50s, his both grand dads that had WI in their 70s, his grandmother had WI in her 60s. Patient denies smoking, reports drinking 10-15 beers a day, denies recreational drug use. Last alcohol intake was last week. Medications reviewed w/ the patient and his at bedside. Plan of care discussed with the patient and his at bedside in detail, they voiced understanding. Full code Admission Exam Per Admitting Provider GENERAL: Alert and oriented x3. NAD, on RA. Obese class III. HEENT: No pallor, no icterus. Pupils equal, round and reactive to light. Oral mucosa moist. NECK: No JVD, no neck masses. HEART: S1 and S2 heard. Regular rate and rhythm. No murmur, no gallop. RESPIRATORY SYSTEM: Normal AP diameter. No accessory muscle use. No wheezing, no crackles. ABDOMEN: Soft, bowel sounds present, nontender, no distention. CENTRAL NERVOUS SYSTEM: No facial droop. Speech is clear. Obeys simple commands. Moves extremities. EXTREMITIES: No edema, no erythema seen. Principal Diagnosis Hypertensive urgency Chest pain Medication noncompliance Abnormal thyroid function test Discharge Data Allergies Allergy/AdvReac Type Severity Reaction Status Date / Time No Known Allergies Allergy Unverified 11/13/17 08:36 Consultations 05/18/25 14:53 Consult Cardiology Routine Procedures Performed Laboratory Results WBC 8.80 K/ul (4.8-10.8) 05/19/25 03:00 RBC 4.74 M/uL (4.70-6.10) 05/19/25 03:00 Hgb 14.6 g/dL (14.0-18.0) 05/19/25 03:00 Hct 42.5 % (42.0-52.0) 05/19/25 03:00 MCV 89.7 fL (80.0-100.0) 05/19/25 03:00 MCH 30.8 pg (25.0-34.0) 05/19/25 03:00 MCHC 34.4 g/dL (32.0-36.0) 05/19/25 03:00 RDW Std Deviation 39.5 fL (36.4-46.3) 05/19/25 03:00 RDW Coeff of Regi 12.1 % (11.5-14.5) 05/19/25 03:00 Plt Count 264 K/uL (130-400) 05/19/25 03:00 MPV 9.0 fL (9.4-12.4) L 05/19/25 03:00 Immature Gran % (Auto) 0.3 % 05/18/25 13:13 Neut % (Auto) 67.8 % 05/18/25 13:13 Lymph % (Auto) 25.1 % 05/18/25 13:13 [place] % (Auto) 5.3 % 05/18/25 13:13 Eos % (Auto) 0.9 % 05/18/25 13:13 Baso % (Auto) 0.6 % 05/18/25 13:13 Neut # (Auto) 6.65 K/uL (1.40-6.50) H 05/18/25 13:13 Lymph # (Auto) 2.46 K/uL (1.20-3.40) 05/18/25 13:13 [place] # (Auto) 0.52 K/uL (0.11-0.59) 05/18/25 13:13 Eos # (Auto) 0.09 K/uL (0.00-0.50) 05/18/25 13:13 Baso # (Auto) 0.06 K/uL (0.00-0.20) 05/18/25 13:13 Immature Gran # (Auto) 0.03 K/uL (0.01-0.20) 05/18/25 13:13 PT 9.9 Seconds (9.0-12.0) 05/18/25 13:13 INR 0.9 (0.9-1.1) 05/18/25 13:13 APTT 27 Seconds (21-31) 05/18/25 13:13 PTT Ratio 1.0 05/18/25 13:13 D-Dimer 270 ug/L FEU (0-500) 05/18/25 13:13 Sodium 137 mmol/L (136-145) 05/19/25 03:00 Potassium 3.8 mmol/L (3.5-5.1) 05/19/25 03:00 Chloride 100 mmol/L (98-107) 05/19/25 03:00 Carbon Dioxide 30 mmol/L (21-32) 05/19/25 03:00 Anion Gap 7 (3-11) 05/19/25 03:00 BUN 15 mg/dl (6-23) 05/19/25 03:00 Creatinine 0.80 mg/dl (0.6-1.4) 05/19/25 03:00 Est Cr Clr Drug Dosing 176.6 ml/min 05/19/25 03:00 eGFR 111.92 05/19/25 03:00 BUN/Creatinine Ratio 18.8 (10-20) 05/19/25 03:00 Glucose 151 mg/dl (70-99(Fasting)) H 05/19/25 03:00 POC Glucose 254 mg/dl (70-99) H 05/19/25 11:09 Estimat Average Glucose 177 mg/dl 05/19/25 03:00 Hemoglobin A1c 7.8 % (4.5-5.6) H 05/19/25 03:00 Calcium 8.7 mg/dl (8.6-10.3) 05/19/25 03:00 Phosphorus 3.8 mg/dl (2.5-4.9) 05/19/25 03:00 Magnesium 1.8 mg/dl (1.7-2.4) 05/19/25 03:00 Total Bilirubin 0.5 mg/dl (0.2-1.0) 05/18/25 13:13 AST 24 U/L (13-39) 05/18/25 13:13 ALT 33 U/L (7-52) 05/18/25 13:13 Alkaline Phosphatase 100 U/L (34-104) 05/18/25 13:13 Troponin I High Sens 27.9 pg/ml (0-20) H 05/19/25 03:00 B-Natriuretic Peptide 29 pg/ml (0-100) 05/18/25 13:13 Total Protein 7.6 gm/dl (6.0-8.3) 05/18/25 13:13 Albumin 4.3 gm/dl (3.4-5.0) 05/18/25 13:13 Globulin 3.3 gm/dl (2.5-4.0) 05/18/25 13:13 Albumin/Globulin Ratio 1.3 (0.9-2) 05/18/25 13:13 Triglycerides 299 mg/dl (0-150) H 05/19/25 03:00 Cholesterol 193 mg/dl (0-200) 05/19/25 03:00 LDL Cholesterol, Calc 94 mg/dl 05/19/25 03:00 VLDL Cholesterol, Calc 60 mg/dl (0-30) H 05/19/25 03:00 HDL Cholesterol 39 mg/dl 05/19/25 03:00 Cholesterol/HDL Ratio 4.9 (0-5) 05/19/25 03:00 Lipase 26 U/L (11-82) 05/18/25 13:13 TSH 24.017 uIu/ml (0.300-4.500) H 05/19/25 03:00 Free T4 0.74 ng/dl (0.61-1.60) 05/19/25 03:00 Impressions Chest X-Ray 05/18/25 13:02 SINGLE VIEW CHEST CLINICAL HISTORY: Chest pain FINDINGS: An AP, portable, upright chest radiograph is obtained. No prior studies are available for comparison at the time of dictation. The cardiomediastinal silhouette is unremarkable. The lungs and pleural spaces are clear. No pneumothorax is seen. The bony thorax is grossly intact. IMPRESSION: No acute cardiopulmonary abnormality is identified. ACT 112: Negative or not required by law. Electronically signed by: Delio Castorena M.D. 05/18/2025 2:20 PM Hospital Course (1) Noncompliance with medication regimen: Counseled on medication compliance Patient understands and agrees to be compliant in the future (2) Uncontrolled hypertension: Hypertensive urgency Secondary to noncompliance Restarted lisinopril 20 mg daily Added amlodipine 2.5 mg daily for better control of blood pressure IV labetalol as needed Monitor and adjust medications as needed (3) Chest pain: Chest pain likely due to above Troponin elevation likely demand ischemia secondary to hypertensive urgency --CXR:No acute cardiopulmonary abnormality is identified. --ECHO: Left ventricle systolic function is normal. EF 55 to 60%. Grade 2 diastolic dysfunction. Left atrium mildly dilated. Mild pulmonic valvular regurgitation. Mild mitral, tricuspid regurgitation. --EKG: NSR, Incomplete RBBB, QTc 436, nonspecific T wave changes Chest pain resolved Control blood pressure Cardiology on board Needs outpatient stress test (4) Poorly controlled diabetes mellitus: Morbid obesity BMI 46.7 Lifestyle modifications recommended Advised to get sleep study as outpatient Hypothyroidism Noncompliance TSH elevated, normal free T4 Resume levothyroxine Advised to get repeat thyroid function test as outpatient DM II HbA1c 7.8 Advised to resume metformin, Ozempic on discharge Insulin sliding scale while hospitalized Monitor glucose levels DVT Px: Heparin SQ CODE STATUS Full code Disposition Home Total Time Total Time Spent Total Time Spent (In Minutes): 53 minutes Discharge Plan Discharge Items Patient Disposition: Home - Self-Care Reason For Visit: CHEST DISCOMFORT Discharge Diagnosis: Hypertensive urgency Chest pain Medication noncompliance Abnormal thyroid function test Condition on Discharge: Fair Activity: Per Instructions section Exercise/Sports: Gradually increase as tolerated Non-emergency contact: Primary Care Provider and Case Management Rn Call non-emergency contact if: you have any medication questions, your symptoms worsen, your pain is concerning for you and you have a fever Follow-up/Referrals: Vince Jimenez MD [Primary Care Provider] - (Date & Time 05/26/2025 9:00 AM Provider: Uziel Byers MD [facility] ) Diet: Carb Consistent or DM2 and Heart Healthy Addtl Attending Provider Instructions: -- Follow-up with your primary care physician Dr. Jimenez on 05/26/2025 9:00 AM -- Follow-up with your relationship specialist for outpatient stress test as recommended --Monitor your blood pressure regularly and discuss with your primary care physician for further adjustment of medications as needed. --Get outpatient sleep study to rule out sleep apnea as recommended --Obtain thyroid function test (TSH, free T4) in 4 to 6 weeks for further adjustment of medications if needed. Seek immediate medical attention if your symptoms reoccur or worsen Please review medication list provided on discharge for any medication changes as instructed. Please call if you have any questions or problems. You can reach a [facility] hospitalist on duty at [facility] 24 hours a day by calling [phone] [facility] Chemist Food Provider Instructions: DIABETES RECOMMENDATIONS: 1.) Diabetes Medications Metformin: - Restart Metformin at lower dose to help minimize any GI symptoms. - Start with 500mg with breakfast and 500mg with supper x 3 days. - If tolerating well, increase to 1000mg (500mg x 2) with breakfast and 500mg with supper x 3 days. - If tolerating well, increase to 1000mg (500mg x 2) with breakfast and 1000mg (500mg x 2) with supper. Ozempic: - Restart Ozempic at lower dose to help minimize any GI symptoms. - Start with 0.25mg (18 clicks) weekly x 2 weeks. - If tolerating well, increase dose to 0.5mg weekly (36 clicks) x 2 weeks. - If tolerating well, increase dose to 1mg weekly. 2.) Monitoring - A glucose meter was ordered for you to start checking your blood sugar levels at home to help guide diet/diabetes medication adjustments, as needed. - Try to check your blood sugar 1x/day. - Try to change the time you check from day to day. - Great times to check are before any meal, 1-2 hours after any meal and before bed. - Targets: Before Meals: 80-120 1-2 Hours After Meals: Less than 160 3.) Lifestyle Changes - Work on eliminating alcohol to drink. - Focus on balanced meals with protein and non-starchy vegetables while li miting carbohydrates. Pending Studies at Discharge: No Stand-Alone Forms: My [facility] [employer], Smoking Cessation Medications and DC Order Prescriptions: New amlodipine 2.5 mg tablet 2.5 mg PO QAM Qty: 30 1RF (DME) blood-glucose meter [True Metrix Glucose Meter] Misc See Rx Instructions .Route Qty: 1 0RF Rx Instructions: Check blood glucose once per day (DME) True Metrix Glucose Test Strip Strip See Rx Instructions .Route Qty: 100 1RF Rx Instructions: Check blood glucose once per day (DME) lancets [TRUEplus Lancets] 30 gauge misc See Rx Instructions .Route Qty: 100 1RF Rx Instructions: Check blood glucose once per day Continued Ozempic 1 mg/dose (4 mg/3 mL) pen injector 1 mg SUBCUT WK lisinopril 20 mg tablet 20 mg PO QAM Qty: 30 1RF levothyroxine 25 mcg tablet 25 mcg PO DAILY Qty: 30 1RF Rx Instructions: IN ADDITION TO 200MCG metformin 1,000 mg tablet 1,000 mg PO AMHS Qty: 60 1RF levothyroxine 200 mcg tablet 200 mcg PO DAILY Qty: 30 1RF Discharge Orders: Discharge Order (Routine); Ordered 05/19/25 Ordered By: Arjun Crum Admission Data Admit Date/Time: 05/18/25 14:54 Attending Provider: Arjun Crum Admit Provider: Austin Lugo Primary Care Provider: Vince Jimenez Other Providers: Crystal Ling
--- NOTE | 2025-05-20 21:49 | Electrocardiogram Report ---
Test Reason : Blood Pressure : */* mmHG Vent. Rate : 76 BPM Atrial Rate : 76 BPM P-R Int : 174 ms QRS Dur : 108 ms QT Int : 394 ms P-R-T Axes : 20 66 75 degrees QTcB Int : 443 ms Normal sinus rhythm Incomplete right bundle branch block Borderline ECG When compared with ECG of 18-May-2025 12:38, Borderline criteria for Anteroseptal infarct are no longer Present Confirmed by Roberto Arzate ([id number]) on 05/20/2025 9:48:34 PM Referred By: REFERRED SELF Confirmed By: Roberto Arzate
== END 2025-05-19 13:38 | disposition home or self-care (01) ==
LOC: ED 12:26 → SUATTDRO 14:54 → INTOOBSV 14:54 → 2S 14:54